=== PATIENT | male | born 1995 | race Caucasian/White ===

== ENCOUNTER 2022-06-24 17:45 | Emergency (ER) | payer OTHER, BC, SELFPAY ==
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
[2022-06-24 18:01] VITALS: BP 178/119; PULSE 114; RESP 18; TEMP 36.2; O2SAT 98
[2022-06-24] MEDS: IBUPROFEN 600 MG TABLET PO (19:48)
[2022-06-24 20:46] VITALS: BP 182/110; PULSE 100; RESP 18; TEMP 36.3; O2SAT 97
[2022-06-24 21:36] VITALS: BP 156/104; PULSE 94; O2SAT 98
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
== END 2022-06-24 21:50 | disposition home or self-care (01) ==
PROVIDERS: Emergency Provider Emergency Medicine
DX: S40.012A Contusion of left shoulder, initial encounter (principal); S80.02XA Contusion of left knee, initial encounter; S16.1XXA Strain of muscle, fascia and tendon at neck level, initial encounter; S39.92XA Unspecified injury of lower back, initial encounter; M47.816 Spondylosis without myelopathy or radiculopathy, lumbar region; M19.012 Primary osteoarthritis, left shoulder; V43.52XA Car driver injured in collision with other type car in traffic accident, initial encounter
CPT/HCPCS: 71046; 72100; 72125; 73030; 73090; 73564; 99284; A9270